=== PATIENT | male | born 1990 | race Two or more races ===

== ENCOUNTER 2024-01-03 10:30 | Emergency (ER) | payer SELFPAY | END 2024-01-03 11:20 | disposition home or self-care (01) | LOC: CC.ED 10:30 | DX: S86.912A Strain of unspecified muscle(s) and tendon(s) at lower leg level, left leg, initial encounter (principal); W22.8XXA Striking against or struck by other objects, initial encounter | CPT/HCPCS: 73562-LT; 99283 ==